=== PATIENT | male | born 1960 | race Two or more races ===

== ENCOUNTER 2022-07-11 19:17 | Emergency (ER) | payer BC, OTHER ==
[~2022-07-11] VITALS: Ht 160 cm; Wt 83.0 kg
[2022-07-11] MEDS ORDERED: LIDOCAINE 2% JEL UROJET 10 ML MM ONE (20:16)
--- NOTE | 2022-07-11 20:20 | NUR ---
TO ER BED 4. BIBWIFE FROM HOME C/O DYSURIA. LAST URINATED 4PM. PAIN IS 8/10 ON P/S. ALERT AND ORIENTED. RR EVEN AND NON LABORED. CONNECTED TO MONITOR
--- NOTE | 2022-07-11 20:36 | NUR ---
URINE COLLECTED AND SENT TO LAB
[2022-07-11 21:02] LABS: BILIRUBIN,URINE NEGATIVE (NEGATIVE); COLOR,URINE YELLOW (YELLOW); LEUKOCYTE ESTERASE ,URINE TRACE (NEGATIVE); NITRITE, URINE NEGATIVE (NEGATIVE); PROTEIN,URINE NEGATIVE (NEGATIVE); UGLUCOSE NEGATIVE (NEGATIVE); UROBILINOGEN,URINE 0.2 EU/dL (0.2)
[2022-07-11 21:04] LABS: BACTERIA,URINE Rare /HPF (None Seen); RBC,URINE 21-50 /HPF (0-2); SQUAMOUS EPITHELIAL CELL,UR Few /HPF (None Seen); WBC,URINE 0-2 /HPF (0-3)
[2022-07-11] MEDS ORDERED: TAMS-12 PO (21:05)
--- NOTE | 2022-07-11 22:08 | NUR ---
URINARY LEG BAG CONNECTED
--- NOTE | 2022-07-11 22:09 | NUR ---
Patient discharged to home in stable condition. Written and verbal after care instructions given. Patient verbalizes understanding of instruction.
[2022-07-11 22:17] VITALS: BP 122/71
== END 2022-07-11 22:25 | disposition home or self-care (01) ==
LOC: ER 19:20
DX: R33.9 Retention of urine, unspecified (principal); Z79.899 Other long term (current) drug therapy
CPT/HCPCS: 99284; 51702; 87086; 81001; J3490